=== PATIENT | female | born 1980 | race Caucasian/White ===

== ENCOUNTER → 2017-03-06 | Outpatient (CLI) | payer OTHER ==
--- NOTE | 2017-03-07 09:17 | RADIOLOGY REPORT (SQ) ---
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 TECHNIQUE: Multiplanar imaging includes noncontrasted T1, T2, FLAIR, diffusion with ADC map and post gadolinium contrast T1 sequences. Images stored on PACS. CONTRAST TYPE AND DOSE: 15 mL MultiHance RENAL FUNCTION: None required. The patient is less than 50 years old. LIMITATIONS: None. FINDINGS: ANATOMY: No anomalies. Normal vascular flow voids. Pituitary fossa normal. CSF SPACES: Normal in size and contour. No hemorrhage. CEREBRUM: Sulci and gyri normal in size and contour. Normal white matter signal on FLAIR imaging. No evidence of hemorrhage, mass, or extraaxial fluid collection. No abnormal enhancement post contrast. POSTERIOR FOSSA: No signal alteration. No hemorrhage. No edema, masses, or mass effect. Internal portia tory canals, cerebellopontine angles, mastoids normal. No enhancing lesions. No abnormal enhancement post contrast. DIFFUSION IMAGING: Negative for acute or subacute infarction. ORBITS: No masses. Globes normal. PARANASAL SINUSES: No fluid levels. Mucosa normal. OTHER: No other significant finding. IMPRESSION: NORMAL MRI OF THE BRAIN WITHOUT AND WITH INTRAVENOUS GADOLINIUM CONTRAST. EVIDENCE OF ACUTE STROKE: NO. TECHNICAL DOCUMENTATION: JOB ID: [id number] [email or web address]- All Rights Reserved
--- NOTE | 2017-03-07 09:24 | RADIOLOGY REPORT (SQ) ---
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 TECHNIQUE: Sagittal and Axial imaging includes T1, T2, STIR and gradient echo sequences. T1 post anupam olinium sequences. CONTRAST TYPE AND DOSE: 15 mL MultiHance RENAL FUNCTION: None required. The patient is less than 50 years old. LIMITATIONS: None. FINDINGS: ALIGNMENT: Normal. VERTEBRAE: Intact. BONE MARROW: Normal. No marrow replacement or reactive changes. DISCS: Normal. No significant abnormal signal or loss of height. HARDWARE: None in the spine. CORD AND BASE OF BRAIN: Normal in size and signal intensity. SOFT TISSUES: No soft tissue masses. C1-C2: No significant spinal stenosis. C2-C3: No significant spinal stenosis or exit foraminal stenosis. C3-C4: No significant spinal stenosis or exit foraminal stenosis. C4-C5: No significant spinal stenosis or exit foraminal stenosis. C5-C6: No significant spinal stenosis or exit foraminal stenosis. C6-C7: No significant spinal stenosis or exit foraminal stenosis. C7-T1: No significant spinal stenosis or exit foraminal stenosis. UPPER THORACIC: Incompletely imaged. No significant spinal stenosis or exit foraminal stenosis. ENHANCEMENT: No abnormal enhancement. OTHER: No other significant finding. IMPRESSION: NORMAL MRI CERVICAL SPINE. COMMENT: None. TECHNICAL DOCUMENTATION: JOB ID: [id number] [email or web address]- All Rights Reserved
== END ==
LOC: RAD 15:18
PROVIDERS: ATTEND Neurological Surgery
DX: M54.12 Radiculopathy, cervical region (principal); G37.9 Demyelinating disease of central nervous system, unspecified
CPT/HCPCS: 70553; 72156; A9577

== ENCOUNTER 2018-11-24 08:28 | Day surgery (SDC) | payer OTHER ==
[2018-11-18 10:33] LABS: HEMATOCRIT 42.1 % (36.0-47.0); HEMOGLOBIN 14.6 g/dL (12.0-15.5); MEAN CORPUSCULAR HEMOGLOBIN 33.5 pg (27.0-33.4); MEAN CORPUSCULAR HGB CONC 34.6 g/dL (32.0-36.0); MEAN CORPUSCULAR VOLUME 97 fl (80-97); PLATELET COUNT 368 10^3/uL (150-450); RED BLOOD COUNT 4.35 10^6/uL (3.72-5.28); RED CELL DISTRIBUTION WIDTH 13.1 % (11.5-14.0); WHITE BLOOD COUNT 8.5 10^3/uL (4.0-10.5)
[2018-11-18 10:41] LABS: APPEARANCE,URINE CLEAR; BILIRUBIN,URINE NEGATIVE (NEGATIVE); COLOR,URINE YELLOW; GLUCOSE, URINE NEGATIVE (NEGATIVE); KETONES,URINE NEGATIVE (NEGATIVE); LEUKOCYTE ESTERASE,URINE NEGATIVE (NEGATIVE); NITRITE,URINE NEGATIVE (NEGATIVE); PROTEIN,URINE NEGATIVE (NEGATIVE); UROBILINOGEN,URINE NEGATIVE mg/dL (<2.0)
[2018-11-18 10:54] LABS: ALBUMIN 4.4 g/dL (3.5-5.0); ALKALINE PHOSPHATASE 61 U/L (38-126); ASPARTATE AMINO TRANSFERASE 23 U/L (14-36); BILIRUBIN,DIRECT 0.2 mg/dL (0.0-0.4); BILIRUBIN,TOTAL 0.4 mg/dL (0.2-1.3)
[2018-11-18 15:10] LABS: ANION GAP 8 (5-19); BLOOD UREA NITROGEN 10 mg/dL (7-20); CALCIUM 9.7 mg/dL (8.4-10.2); CARBON DIOXIDE 27 mmol/L (22-30); CHLORIDE 104 mmol/L (98-107); GLUCOSE 106 mg/dL (75-110); POTASSIUM 4.4 mmol/L (3.6-5.0)
[~2018-11-24 08:28] MED LIST: FENTANYL CITRATE INJ/PF 100 MCG/2 ML AMPUL ONE; MIDAZOLAM 2 MG/2 ML INJ ONE; ONDANSETRON HCL INJ/PF 4 MG/2 ML SDV ONE; PROPOFOL INJ 200 MG/20 ML VIAL IV ONE
[2018-11-24] MEDS ORDERED: GENTAMICIN SULFATE/PF INJ 20 MG/2 ML VIAL IV PRN (08:44)
[2018-11-24] MEDS ORDERED: GENTAMICIN SULFATE 80 MG in DEXTROSE 5%-WATER 100 ML IV PRN (08:49)
[2018-11-24] MEDS ORDERED: SCOPOLAMINE HYDROBROMIDE 1.5 MG PATCH.TD72 ONE (08:56)
[2018-11-24] MEDS ORDERED: ALBUTEROL SULFATE 0.083% NEB 2.5 MG/3 ML AMPUL NEB ONE (08:57)
[2018-11-24] MEDS ORDERED: FAMOTIDINE INJ/PF 20 MG/2 ML SDV IV ONE (08:57)
[2018-11-24] MEDS ORDERED: LIDOCAINE 1% INJ-PF (10 MG/ML) 30 ML SDV ONE (09:29)
[2018-11-24] MEDS ORDERED: PROMETHAZINE HCL INJ 25 MG/1 ML VIAL IV PRN ×3 (10:04→11:24)
[2018-11-24] MEDS ORDERED: MEPERIDINE HCL/PF INJ 25 MG/1 ML DISP.SYRIN IV PRN (10:04)
[2018-11-24] MEDS ORDERED: FENTANYL CITRATE INJ/PF 100 MCG/2 ML AMPUL IV PRN ×3 (10:04)
[2018-11-24] MEDS ORDERED: OXYCODONE-ACETAMINOPHEN 5-325 MG TABLET PO PRN ×2 (11:23)
[2018-11-24] MEDS ORDERED: OXYCODONE-ACETAMINOPHEN 5-325 MG TABLET ONE (11:26)
[2018-11-24 12:50] VITALS: BP 129/80
--- NOTE | 2018-11-24 15:30 | OPERATIVE REPORT E ---
Operative Report NAME: KISHAN DUMONT : 1980 AGE: 38Y DATE OF SURGERY: 11/24/2018 ROOM: PREOPERATIVE DIAGNOSIS: Dysfunctional uterine bleeding, menometrorrhagia. POSTOPERATIVE DIAGNOSIS: Dysfunctional uterine bleeding, menometrorrhagia. OPERATION: D and C, hysteroscopy, NovaSure. SURGEON: SHEY VALERA M.D. ANESTHESIA: General. ESTIMATED BLOOD LOSS: 20 mL. PERTINENT HISTORY AND OPERATIVE FINDINGS: This is a 38-year-old female who was having trouble with dysfunctional uterine bleeding, ultimately opted to have a D and C, hysteroscopy, and NovaSure. She is aware of the risks and benefits. At the time of surgery the vulva and vagina appeared to be normal, the cervix appeared to be normal, uterus was normal size and shape and anterior, and adnexae were negative. OPERATIVE PROCEDURE: The patient was brought into the OR, placed on the table in a supine position, inducted under general anesthesia. She was repositioned in dorsal lithotomy position, prepped and draped in a sterile fashion. The bladder was drained. There was only about 10 mL of clear yellow urine. The pelvic under anesthesia was performed. A weighted speculum was inserted in the vagina. The cervix was grasped on its anterior lip with a single-tooth tenaculum and an Allis. The cervical length was tested with Hegar dilators and it was 3 cm, and the uterus was sounded to 8 cm, giving us a cavity length of 5 cm. It was then dilated to #8 Hegar dilator. D and C was performed with tissue returned sent to the lab for further evaluation. The hysteroscope was then enabled with normal saline. It was gently inserted through the cervical os into the fundus. The cavity was visualized. There did not appear to be any abnormality. There was still a little bit of tissue left. The suction was turned on. The saline was stopped. The excess fluid was removed. The NovaSure was then hooked up, enabled, and gently inserted through the cervix. Then, going north, south, east, west, a cavity length of 5 cm was ascertained. The NovaSure stopper was moved forward and held in place against the cervix. The machine had the cavity tested and then was enabled. The power was enacted of 116. The time was 1 minute 56 seconds. Once again, cavity length was 5 cm, width was 4.2 cm. This terminated the procedure. We had a good burn. The equipment was closed and removed. Hysteroscope was reinserted through the cervix until the uterine cavity was entered. The saline was running at this point of time. There was a good burn. The excess saline was removed. The scope was removed. The tenaculum and Allis were removed from the anterior lip of the cervix. There was no evidence of active bleeding. The weighted speculum was removed. Anesthesia was discontinued. The patient was placed back in a supine position, and she was transferred to the recovery room in satisfactory condition. DICTATING PHYSICIAN: SHEY VALERA M.D. [id number] PHY#: [id number] ID: [id number] JOB#: [id number] ACCT: [id number] cc:SHEY VALERA M.D. >
== END 2018-11-24 12:25 | disposition home or self-care (01) ==
LOC: OROUT 08:28
PROVIDERS: ATTEND Obstetrics & Gynecology
DX: N93.8 Other specified abnormal uterine and vaginal bleeding (principal); N92.0 Excessive and frequent menstruation with regular cycle; F17.210 Nicotine dependence, cigarettes, uncomplicated
CPT/HCPCS: 36415; 84443; 85027; 81025 ×2; 80053; 81001; 88305 ×2; 58563; J2250; J3010; J1580; J3490; J2405; J7060; J2704; S0028